=== PATIENT | female | born 1960 ===

== ENCOUNTER 2018-12-22 07:45 | Day surgery (SDC) | payer OTHER ==
[~2018-12-22] VITALS: Ht 167.6 cm; Wt 85.3 kg
--- NOTE | ~2018-12-22 | OR ---
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 POSTOPERATIVE DIAGNOSES: Nasal obstruction due to septal deformity and inferior turbinate hypertrophy. PROCEDURES: Septoplasty and cautery bilateral inferior turbinates. ANESTHESIA: General LMA; Refugio NEV[place]. PREOPERATIVE HISTORY: Ms. Hutchinson is a 58-year-old lady with nasal obstruction due to septal deformity and inferior turbinate hypertrophy, unresponsive to appropriate medications. She was taken to the operating room for the above-mentioned procedures. OPERATIVE PROCEDURE AND FINDINGS: After informed consent, the patient was taken to the operating room, placed in supine position where general LMA anesthesia was induced. The patient and procedure were verified. The patient received preoperative intranasal oxymetazoline and intravenous Ancef. Headlight speculum exam of the nasal cavity showed septal deformity on the left. A large spur inferiorly impinging on the inferior turbinate. Septal mucosa was injected with 1% lidocaine with epi. The mucosa was elevated off the deviated cartilage and bone, and this was excised with the Anam. The airway was improved. The impingement on the inferior turbinate was removed. The inferior turbinates were then cauterized with a long-handle needle-point cautery starting on the right side. Multiple transmucosal passes on the medial and inferior surface of the inferior turbinate starting anteriorly extending all the way back posteriorly. Excellent decongestion of the inferior turbinate was obtained in this manner. Same procedure on the left inferior turbinate. Bleeding was minimal. Packing was placed. Equal amount of Merocel one piece each side coated with Neosporin, tied anteriorly over a pad. The pharynx was suctioned clear of blood secretions. The patient was then awakened, extubated, transported to recovery room in good condition. No complications. PATIENT NAME: DAVID HUTCHINSON OPERATIVE REPORT DATE OF : 60 REPORT #: [id number] PHYSICIAN: STAS RENTERIA MD PCP: RADHA JIMENEZ REPORT IS CONFIDENTIAL AND NOT TO BE RELEASED WITHOUT AUTHORIZATION [facility] [address], [place] [address] Draft BLOOD LOSS: Minimal. SPECIMEN: No specimen. DRAINS: No drains. PACKING: One piece of Merocel each nostril. Stas Renteria MD GC/MODL /[id number] Copies: ~ PATIENT NAME: DAVID HUTCHINSON OPERATIVE REPORT DATE OF : 60 REPORT #: [id number] PHYSICIAN: STAS RENTERIA MD PCP: RADHA JIMENEZ REPORT IS CONFIDENTIAL AND NOT TO BE RELEASED WITHOUT AUTHORIZATION
[~2018-12-22 07:45] MED LIST: ALBUTEROL1.25 MG/3 INH; CLARITIN10 MG PO; FLONASE ALLERG9.9 ML NAS; PHENTERMINE HCL15 MG PO; PROAIR RESPICL90 MCG INH; PSEUDOEPHEDRINE30 MG PO; QVAR REDIHALE10.6 G1 INH; SINGULAIR10 MG PO
--- NOTE | 2018-12-22 09:58 | NUR ---
12/22/18 0958 Cassidy De Anda 0992 PATIENT ARRIVES TO PACU UNRESPONSIVE TO PAIN. ORAL AIRWAY IN PLACE. HOB ELEVATED. RESP EVEN AND UNLABORED, MASK AT 6 LITERS.
--- NOTE | 2018-12-22 11:22 | NUR ---
1055: PATIENT BACK IN DAY SURGERY ROOM FROM PACU. C/O PAIN 6/10 IN NOSE. PATIENT GIVEN PUDDING AND CRACKERS. TOLERATING SODA AND WATER. MOUSTACHE DRESSING AND NASAL PACKING IN PLACE. SMALL AMOUNT OF RED DRAINAGE SEEN ON PACKING. IV SITE WNL. SCDs ON. CALL LIGHT WITHIN REACH.
[2018-12-22] MEDS ORDERED: NORCO 5-325 TA1 EACH PO (12:38)
[2018-12-22] MEDS ORDERED: KEFLEX500 MG PO (12:38)
--- NOTE | 2018-12-22 13:46 | NUR ---
1210: PATIENT TOLERATED PUDDING AND CRACKERS. VS CHECKED. NASAL PACKING IN PLACE. MOUSTACHE DRESSING WITH SMALL AMOUNT OF RED DRAINAGE. IV SITE WNL. CALL LIGHT WITHIN REACH. PATIENT ASSISTED OOB. GAIT STEADY ON FEET WALKING AROUND ROOM. PATIENT DRESSING INDEPENDENTLY. 1250: DISCHARGE INSTRUCTIONS GIVEN TO PATIENT. IV DC'D WNL. TIP INTACT. DRESSING APPLIED. 1300: PATIENT DISCHARGED TO HOME WITH FATHER VIA WHEELCHAIR.
== END 2018-12-22 13:00 | disposition home or self-care (01) ==
LOC: OPS 07:45 → DS 09:45 → OPS 09:45
PROVIDERS: Otolaryngology
PROC: 09SM0ZZ Reposition Nasal Septum, Open Approach (ICD-10-PCS; principal; 2018-12-22 09:45)
PROC: 095L7ZZ Destruction of Nasal Turbinate, Via Natural or Artificial Opening (ICD-10-PCS; 2018-12-22 09:45)
DX: J34.2 Deviated nasal septum (principal); J34.3 Hypertrophy of nasal turbinates; F17.210 Nicotine dependence, cigarettes, uncomplicated; F32.9 Major depressive disorder, single episode, unspecified; J45.909 Unspecified asthma, uncomplicated; Z88.5 Allergy status to narcotic agent; Z88.2 Allergy status to sulfonamides; Z79.899 Other long term (current) drug therapy; Z79.51 Long term (current) use of inhaled steroids
CPT/HCPCS: J0690; J1100; J1885; J2405; J2704; J3010; J7120